=== PATIENT | female | born 2000 | race African-American/Black ===

== ENCOUNTER 2021-03-30 11:16 | Inpatient (IN) ==
[2021-03-30] MEDS ORDERED: MEPERIDINE 50 MG/1 ML VIAL IV PRN (11:46)
[2021-03-30] MEDS ORDERED: ONDANSETRON 4 MG/2 ML VIAL IV PRN ×2 (11:46→17:51)
[2021-03-30] MEDS ORDERED: BUTORPHANOL 2 MG/ML VIAL IV PRN (11:46)
[2021-03-30] MEDS ORDERED: OXYTOCIN/LR 20 UNIT/1,000 ML BAG IV SCH (12:00)
[2021-03-30] MEDS ORDERED: LACTATED RINGERS 1,000 ML IV SCH (12:00)
[2021-03-30 12:05] LABS: Basophils % 0.7 % (0.0-0.8); Eosinophils # 0.1 10*3/uL (0.0-0.87); Eosinophils % 1.6 % (0.00-10.9); Hematocrit 36.4 VOL% (35.7-47.0); Hemoglobin 10.9 GM/DL (12.0-16.0); Immature Granulocytes % 0.7 %; Immature Granulocytes Absolute 0.03 #; Lymphocytes # 1.6 10*3/uL (1.4-4.0); Lymphocytes % 35.2 % (21.3-54.2); Mean Corpuscular HGB Conc 29.9 GM/DL (32-36); Mean Corpuscular Volume 79.6 FL (87-102); Mean Platelet Volume 9.9 FL (9.6-12.0); Monocytes % 8.1 % (1.7-12.7); Neutrophils % 53.7 % (38.7-73.9); Platelet Count 328 T/CUMM (130-400); Red Blood Count 4.57 MC/CUMM (3.8-5.5); Red Cell Distribution Width 18.6 % (9.3-17.3); White Blood Count 4.4 T/CUMM (4-12)
[2021-03-30] MEDS ORDERED: AMPICILLIN INJ 2,000 MG in SODIUM CHLORIDE 0.9% 100 ML IV ONE (12:10)
[2021-03-30 12:11] LABS: Bilirubin,Urine Negative (Negative); Blood, Urine Negative (Negative); Glucose,Urine (UA) Negative (Negative); Ketones,Urine Negative (Negative); Mucus,Urine Occasional /LPF (Occasional); Nitrite,Urine Negative (Negative); Protein,Urine Negative; RBC,Urine 1 /HPF (0-4); Squamous Epithelial Cell,Urine Occasional /HPF (0-10); Urine Appearance CLEAR (Clear); Urine Color Yellow (Yellow); Urine Specific Gravity 1.016 (1.001-1.035); Urine Urobilinogen < 2.0 EU/DL (0.2-1.0)
[2021-03-30 12:36] LABS: Albumin 2.6 G/DL (3.4-5.0); Calcium 8.4 MG/DL (8.5-10.1); Osmolality,Calculated 275.7 MOS/KG (273-304); Potassium 3.7 MMOL/L (3.5-5.1); Total Protein 6.5 G/DL (6.4-8.2)
[2021-03-30] MEDS ORDERED: miSOPROStoL 200 MCG TABLET ONE (13:11)
[2021-03-30] MEDS ORDERED: TRANEXAMIC ACID 1,000 MG/10 ML VIAL ONE (13:11)
[2021-03-30] MEDS ORDERED: OXYTOCIN/LR 20 UNIT/1,000 ML BAG IV ONE ×2 (13:11→17:51)
[2021-03-30] MEDS ORDERED: METHYLERGONOVINE 0.2 MG/1 ML AMP ONE (13:12)
[2021-03-30] MEDS ORDERED: CARBOPROST TROMETHAMINE 250 MCG/ML AMP IM ONE (13:12)
[2021-03-30] MEDS ORDERED: SODIUM CHLORIDE 0.9% 0 ML IV ONE (13:13)
[2021-03-30 13:14] LABS: Hepatitis B Surface Ag Quant < 0.10 Index; Hepatitis B Surface Ag Result Non-Reactive (NonReactive)
[2021-03-30 13:48] LABS: HIV Antigen/Antibody Result Nonreactive (Nonreactive); Rubella Antibody IgG Result Reactive (NonReactive)
[2021-03-30 15:27] LABS: INR 0.9; PT Patient Result 9.8 SECS (10.5-12.0); Partial Thromboplastin Time 28.1 SECS (23.9-33.8)
[2021-03-30 15:27] LABS: Protein/Creatinine Ratio,Urine 0.2 RATIO
[2021-03-30 15:34] LABS: Bilirubin,Direct < 0.100 MG/DL (0.0-0.20); Uric Acid 7.4 MG/DL (2.6-6.0)
[2021-03-30] MEDS ORDERED: AMPICILLIN INJ 1,000 MG in SODIUM CHLORIDE 0.9% 100 ML IV SCH (16:30)
[2021-03-30] MEDS ORDERED: LIDOCAINE 1% 50 ML VIAL ONE (16:59)
[2021-03-30 17:07] LABS: Cord Venous Blood HCO3 20.6 MMOL/L; Cord Venous Blood PCO2 37.4 MMHG; Cord Venous Blood PO2 33.1
[2021-03-30] MEDS ORDERED: BENZOCAINE 20%/MENTHOL 0.5% SPRAY 56 GM CAN TOP PRN (17:51)
[2021-03-30] MEDS ORDERED: LANOLIN 50% CREAM 0.3 OZ TUBE TOP PRN (17:51)
[2021-03-30] MEDS ORDERED: DIPH/TET/ACEL PERT BOOSTER VACCINE 0.5 ML VIAL IM ONE (17:51)
[2021-03-30] MEDS ORDERED: WITCH HAZEL PADS 100/JAR TOP PRN (17:51)
[2021-03-30] MEDS ORDERED: BISACODYL 10 MG SUPP RECTAL PRN (17:51)
[2021-03-30] MEDS ORDERED: RHO(D) IMMUNE GLOBULIN 300 MCG SYRINGE IM ONE (17:51)
[2021-03-30] MEDS ORDERED: MEASLES/MUMPS/RUBELLA VACCINE 0.5 ML VIAL SUBCUT ONE (17:51)
[2021-03-30] MEDS ORDERED: HYDROCORTISONE 2.5% RECTAL CREAM 30 GM TUBE TOP PRN (17:51)
[2021-03-30] MEDS ORDERED: ACETAMINOPHEN 325 MG TABLET PO PRN (17:51)
[2021-03-30] MEDS: oxyCODONE/ACETAMINOPHEN 5-325 MG TABLET PO PRN ×2 (18:07→22:20)
[2021-03-30] MEDS: IBUPROFEN 800 MG TABLET PO PRN (19:00)
[2021-03-30] MEDS ORDERED: LABETALOL 100 MG/20 ML VIAL IV PRN ×3 (19:54→20:02)
[2021-03-30] MEDS ORDERED: MAGNESIUM SULF DRIP 40 GM/1,000 ML ML IV SCH (20:00)
[2021-03-30] MEDS: DOCUSATE SODIUM 100 MG CAPSULE PO SCH (20:41)
[2021-03-30 22:18] LABS: Bacteria,Urine Occasional /HPF (Few); Bilirubin,Urine Negative (Negative); Blood, Urine Negative (Negative); Glucose,Urine (UA) Negative (Negative); Ketones,Urine Negative (Negative); Nitrite,Urine Negative (Negative); Protein,Urine Negative; RBC,Urine <1 /HPF (0-4); Squamous Epithelial Cell,Urine Occasional /HPF (0-10); Urine Appearance CLEAR (Clear); Urine Color Straw (Yellow); Urine Specific Gravity 1.006 (1.001-1.035); Urine Urobilinogen < 2.0 EU/DL (0.2-1.0)
[2021-03-31 00:44] LABS: Basophils % 0.2 % (0.0-0.8); Eosinophils % 0.3 % (0.00-10.9); Hematocrit 35.3 VOL% (35.7-47.0); Hemoglobin 10.5 GM/DL (12.0-16.0); Immature Granulocytes % 0.5 %; Immature Granulocytes Absolute 0.05 #; Lymphocytes # 1.4 10*3/uL (1.4-4.0); Lymphocytes % 15.1 % (21.3-54.2); Mean Corpuscular HGB Conc 29.7 GM/DL (32-36); Mean Corpuscular Volume 79.5 FL (87-102); Mean Platelet Volume 10.2 FL (9.6-12.0); Monocytes % 6.6 % (1.7-12.7); Neutrophils % 77.3 % (38.7-73.9); Platelet Count 354 T/CUMM (130-400); Red Blood Count 4.44 MC/CUMM (3.8-5.5); Red Cell Distribution Width 18.4 % (9.3-17.3); White Blood Count 9.5 T/CUMM (4-12)
[2021-03-31 00:59] LABS: INR 0.8; PT Patient Result 9.5 SECS (10.5-12.0); Partial Thromboplastin Time 28.3 SECS (23.9-33.8)
[2021-03-31 01:01] LABS: Albumin 2.3 G/DL (3.4-5.0); Bilirubin,Total 0.6 MG/DL (0.20-1.00); Osmolality,Calculated 273.8 MOS/KG (273-304); Potassium 3.8 MMOL/L (3.5-5.1); Total Protein 6.1 G/DL (6.4-8.2); Uric Acid 8.1 MG/DL (2.6-6.0)
[2021-03-31] MEDS ORDERED: LACTATED RINGERS 1,000 ML IV SCH (02:57)
[2021-03-31] MEDS: IBUPROFEN 800 MG TABLET PO PRN ×3 (03:54→22:28)
[2021-03-31] MEDS: DOCUSATE SODIUM 100 MG CAPSULE PO SCH (09:41)
[2021-03-31] MEDS: oxyCODONE/ACETAMINOPHEN 5-325 MG TABLET PO PRN (10:29)
[2021-03-31] MEDS: LABETALOL 100 MG TABLET PO SCH (20:00)
[2021-04-01] MEDS: oxyCODONE/ACETAMINOPHEN 5-325 MG TABLET PO PRN ×2 (00:04→09:38)
[2021-04-01] MEDS: IBUPROFEN 800 MG TABLET PO PRN (06:13)
[2021-04-01 08:33] VITALS: BP 117/73
[2021-04-01] MEDS: LABETALOL 100 MG TABLET PO SCH (09:35)
[2021-04-01] MEDS: DOCUSATE SODIUM 100 MG CAPSULE PO SCH (09:35)
== END 2021-04-01 13:45 | disposition home or self-care (01) | DRG 560 ==
LOC: N.LD 11:16 → N.OB 03-31 22:01
PROVIDERS: ADMIT Student in an Organized Health Care Education/Training Program; ATTEND Student in an Organized Health Care Education/Training Program